=== PATIENT | male | born 1985 | race Caucasian/White ===

== ENCOUNTER 2020-06-26 13:28 | Emergency (ER) | payer OTHER ==
[2020-06-26 15:45] VITALS: BP 104/76
[2020-06-26 16:05] LABS: AMPHETAMINES LEVEL URINE POSITIVE (NEGATIVE); BARBITURATES URINE NEGATIVE (NEGATIVE); BENZODIAZEPINES URINE POSITIVE (NEGATIVE); CANNABINOIDS URINE NEGATIVE (NEGATIVE); COCAINE METABOLITE URINE NEGATIVE (NEGATIVE); METHADONE URINE NEGATIVE (NEGATIVE); OPIATES URINE NEGATIVE (NEGATIVE); PHENCYCLIDINE URINE NEGATIVE (NEGATIVE)
[2020-06-26 17:42] LABS: CHLAMYDIA DNA AMPLIFICATION NEGATIVE (NEGATIVE); GC DNA AMPLIFICATION NEGATIVE (NEGATIVE)
--- NOTE | 2020-06-26 17:54 | ECGEPIP ---
[facility] - ED Test Date: 2020-06-26 Pat Name: RUBIA MIMS Department: Room: - Gender: Male Fisher Weir: [facility] : 1985 Requested By: Emelyn Whitfield Order Number: [id number] Reading MD: Emelyn Whitfield Measurements Intervals [place] Rate: 72 P: 78 [place]: 140 QRS: 79 QRSD: 96 T: 77 QT: 362 QTc: 396 Interpretive Statements Normal sinus rhythm with sinus arrhythmia no prior Electronically Signed on 06-26-2020 17:54:15 EDT by Emelyn Whitfield
== END 2020-06-26 16:14 | disposition home or self-care (01) ==
LOC: M ED 13:28 → EDBD 13:28 → EDSEX 13:28 → M ED 16:14
DX: F15.10 Other stimulant abuse, uncomplicated (principal); F17.210 Nicotine dependence, cigarettes, uncomplicated

== ENCOUNTER 2025-01-22 07:28 | Emergency (ER) | payer OTHER ==
[~2025-01-22] VITALS: Ht 165.1 cm; Wt 56.3 kg
[2025-01-22] MEDS ORDERED: QUET300T2 (07:44)
[2025-01-22] MEDS ORDERED: CLON1TAB8 (07:44)
[2025-01-22] MEDS ORDERED: GABA-1172 (07:44)
[2025-01-22] MEDS ORDERED: BUPR8SUB (07:44)
[2025-01-22] MEDS: OVERDOSE RESCUE KIT XX SCH (12:04)
[2025-01-22 18:22] VITALS: BP 112/74; TEMP 97.5; O2SAT 100
== END 2025-01-22 18:25 | disposition home or self-care (01) ==
LOC: EDBD 07:28 → M ED 07:28
DX: F15.10 Other stimulant abuse, uncomplicated (principal); F41.9 Anxiety disorder, unspecified